=== PATIENT | female | born 1950 | race Caucasian/White ===

== ENCOUNTER → 2016-09-25 | Outpatient (CLI) | payer BC, OTHER ==
[~2016-09-25] MED LIST: BIOT1CAP8 PO; CHOL100010 PO; FLUT220A INH; LEVO75TA5 PO; MISCCAP80 PO; MULT-506 PO; OXYM0.0592 NAE
--- NOTE | 2016-09-25 16:12 | MAMMOGRAPHY REPORT ---
BILATERAL DIGITAL SCREENING MAMMOGRAM TOMOSYNTHESIS WITH CAD: 09/25/2016 CLINICAL HISTORY: Routine screening. Patient has no complaints. TECHNIQUE: Breast tomosynthesis in addition to standard 2D mammography was performed. Current study was also evaluated with a Computer Aided Detection (CAD) system. COMPARISON: Comparison is made to exams dated: 03/10/2016 mammogram, 09/24/2015 mammogram, 07/18/2014 mammogram, 07/04/2013 mammogram, and 06/23/2012 mammogram - [facility]. BREAST COMPOSITION: There are scattered areas of fibroglandular density in both breasts. FINDINGS: No suspicious masses, calcifications, or areas of architectural distortion are noted in e ither breast. There has been no significant interval change compared to prior exams. IMPRESSION: ACR BI-RADS CATEGORY 1: NEGATIVE There is no mammographic evidence of malignancy. A 1 year screening mammogram is recommended. The p atient will receive written notification of the results. Approximately 10% of breast cancers are not detected with mammography. A negative mammographic repor t should not delay biopsy if a clinically suggestive mass is present. Eliana Leon M.D. /:09/25/2016 15:36:34 Reference Librarian: Jacinta Pendleton, [facility] letter sent: Normal 1/2 BI-RADS Code: ACR BI-RADS Category 1: Negative
== END | disposition home or self-care (01) ==
LOC: C.MAMM 13:54
PROVIDERS: ATTEND Family Medicine
DX: Z12.31 Encounter for screening mammogram for malignant neoplasm of breast (principal)

== ENCOUNTER → 2017-09-28 | Outpatient (CLI) | payer BC ==
--- NOTE | 2017-09-29 07:53 | MAMMOGRAPHY REPORT ---
BILATERAL DIGITAL SCREENING MAMMOGRAM TOMOSYNTHESIS WITH CAD: 09/28/2017 CLINICAL HISTORY: Routine screening. Patient has no complaints. TECHNIQUE: Breast tomosynthesis in addition to standard 2D mammography was performed. Current study was also evaluated with a Computer Aided Detection (CAD) system. COMPARISON: Comparison is made to exams dated: 09/25/2016 mammogram, 03/10/2016 mammogram, 09/24/2015 m ammogram, 07/18/2014 mammogram, 07/04/2013 mammogram, and 06/23/2012 mammogram - [facility]. BREAST COMPOSITION: There are scattered areas of fibroglandular density in both breasts. FINDINGS: The parenchymal pattern is unchanged. No developing mass, architectural distortion or clus ter of suspicious microcalcifications is seen in either breast. IMPRESSION: ACR BI-RADS CATEGORY 2: BENIGN There is no mammographic evidence of malignancy. A 1 year screening mammogram is recommended. The pa tient will receive written notification of the results. Approximately 10% of breast cancers are not detected with mammography. A negative mammographic report should not delay biopsy if a clinically suggestive mass is present. Susana Leahy M.D. ay/:09/28/2017 16:10:52 Clinical Laboratory Aides Teacher: Tayler PARSONS(Hodan)(Alfred)([place]), [facility] letter sent: Normal 1/2 BI-RADS Code: ACR BI-RADS Category 2: Benign
== END | disposition home or self-care (01) ==
LOC: C.MAMM 13:30
PROVIDERS: ATTEND Family Medicine
DX: Z12.31 Encounter for screening mammogram for malignant neoplasm of breast (principal)

== ENCOUNTER → 2017-10-01 | Outpatient (CLI) | payer BC ==
--- NOTE | 2017-10-01 10:59 | DIAGNOSTIC IMAGING REPORT ---
(BLAD) RETROPERITONEAL LTD HISTORY: 67 years-old Female CYSTOCELE COMPARISON: None available TECHNIQUE: Multiple real-time sonographic images of the urinary bladder were obtained assessing grayscale appearance and color flow FINDINGS: Prevoid urinary bladder volume measures 200 mL and the post void volume measures 27 mL. Bilateral ureteral jets are present. There is suggestion of mild circumferential urinary bladder wall thickening. No focal mass or significant urinary bladder debris identified. IMPRESSION: 1. Mild urinary bladder wall thickening. Correlate with urinalysis to exclude cystitis. 2. Post void residual of 27 mL. The above report was generated using voice recognition software. It may contain grammatical, syntax or spelling errors. Electronically signed by: Jesus Lam M.D. 10/01/2017 10:58 AM Dictated Date/Time: 10/01/2017 10:55 AM
--- NOTE | 2017-10-01 11:02 | DIAGNOSTIC IMAGING REPORT ---
PELVIC COMPLETE NON OB CLINICAL HISTORY: CYSTOCELE PAIN COMPARISON STUDY: None FINDINGS: The uterus measured prior hysterectomy. The endometrial stripe measured prior hysterectomy. The right ovary measured surgically removed. The left ovary measured surgically removed. There is no ultrasonographic evidence of ovarian torsion. It should be noted that ovarian torsion can be present with normal Doppler ultrasonographic findings. There was no evidence of pathologic free pelvic fluid. IMPRESSION: Negative study status post complete hysterectomy. The above report was generated using voice recognition software. It may contain grammatical, syntax or spelling errors. Electronically signed by: Reji Varela M.D. 10/01/2017 11:01 AM Dictated Date/Time: 10/01/2017 10:58 AM
== END | disposition home or self-care (01) ==
LOC: C.ULTR 09:11
PROVIDERS: ATTEND Family Medicine
DX: N81.10 Cystocele, unspecified (principal); N99.3 Prolapse of vaginal vault after hysterectomy

== ENCOUNTER → 2017-11-12 | Outpatient (CLI) | payer BC | END | disposition home or self-care (01) | LOC: C.PAPS 11:27 | PROVIDERS: ATTEND Family Medicine | DX: Z12.72 Encounter for screening for malignant neoplasm of vagina (principal) ==